=== PATIENT | male | born 1950 | race African-American/Black ===

== ENCOUNTER 2019-12-15 17:06 | Emergency (ER) | payer MEDICARE, MEDICAID ==
[~2019-12-15] VITALS: Ht 193 cm; Wt 147.0 kg
[2019-12-15 17:19] VITALS: BP 165/79
[2019-12-15] MEDS ORDERED: HYDR-2510 PO (17:30)
[2019-12-15] MEDS ORDERED: AMLO10TA4 PO (17:30)
== END 2019-12-15 18:29 | disposition left against medical advice (07) ==
LOC: ER 17:06
DX: Z53.21 Procedure and treatment not carried out due to patient leaving prior to being seen by health care provider (principal)